=== PATIENT | male | born 1995 | race Caucasian/White ===

== ENCOUNTER 2021-10-10 21:42 | Emergency (ER) | payer OTHER ==
[2021-10-10 21:53] VITALS: BP 156/89
[2021-10-10 22:32] LABS: RAPID STREP SCREEN Negative (Negative)
--- NOTE | 2021-10-10 22:51 | ED Physician Documentation ---
PD HPI HEENT - Stated complaint Stated Complaint: SORE THROAT/FLU SYMPTOMS - Chief complaint Chief Complaint: Heent - History obtained from History obtained from: Patient - History of Present Illness Timing - onset: How many days ago (2) Timing - duration: Days Timing - details: Gradual onset Pain level now: 0 Location: Throat Associated symptoms: Fever (Tmax 103), Congestion, Headache, Cough Similar symptoms before: Has not had sx before Recently seen: Not recently seen - Additional information Additional information: c/o 2 days of cough, productive with occasional blood-tinge mucous, fever to Tmax 103, sore throat, generalized myalgias, generalized headache. He is COVID vaccinated without booster. Takes no medications and has no medication allergies. Review of Systems Constitutional: reports: Fever, Chills, Myalgias, Fatigue, Sweats Eyes: reports: Reviewed and negative Throat: reports: Sore throat Cardiac: reports: Reviewed and negative Respiratory: reports: Cough, Hemoptysis (small amount blood-tinged mucous). denies: Dyspnea GI: reports: Reviewed and negative : denies: Dysuria PD PAST MEDICAL HISTORY - Past Medical History Past Medical History: No - Past Surgical History Past Surgical History: No - Present Medications Home Medications: Ambulatory Orders Medication Instructions Recorded Confirmed Oseltamivir [Tamiflu] 75 mg PO BID #9 cap 10/11/21 - Allergies Allergies/Adverse Reactions: Allergies Allergy/AdvReac Type Severity Reaction Status Date / Time No Known Drug Allergies Allergy Verified 10/10/21 21:53 PD ED PE NORMAL - Vitals Vital signs reviewed: Yes - General General: Alert and oriented X 3, No acute distress, Well developed/nourished - HEENT HEENT: Moist mucous membranes - Neck Neck: Supple, no meningeal sign - Cardiac Cardiac: RRR, No murmur, No gallop, No rub - Respiratory Respiratory: No respiratory distress, Clear bilaterally (except for trace right mid-field rhonchi) - Abdomen Abdomen: Normal bowel sounds, Soft, Non tender, Non distended Results - Vitals Vitals: Oxygen O2 Source Room air - Labs Labs: Microbiology 10/10/21 22:20 Group A Strep Throat Culture - Preliminary Throat CULTURE IN PROGRESS. RESULTS TO FOLLOW. Laboratory Tests 10/10/21 10/11/21 22:20 00:11 Nasal Adenovirus (PCR) NOT DETECTED Nasal B. parapertussis DNA (PCR) NOT DETECTED Nasal Coronavir 229E PCR NOT DETECTED Nasal Coronavir HKU1 PCR NOT DETECTED Nasal Coronavir NL63 PCR NOT DETECTED Nasal Coronavir OC43 PCR NOT DETECTED Nasal Enterovir/Rhinovir PCR NOT DETECTED Nasal Influenza A H3 PCR DETECTED A Nasal Influenza B PCR NOT DETECTED Nasal Influenza A PCR NOT DETECTED Nasal Parainfluen 1 PCR NOT DETECTED Nasal Parainfluen 2 PCR NOT DETECTED Nasal Parainfluen 3 PCR NOT DETECTED Nasal Parainfluen 4 PCR NOT DETECTED Nasal RSV (PCR) NOT DETECTED Nasal B.pertussis DNA PCR NOT DETECTED Nasal C.pneumoniae (PCR) NOT DETECTED [place] Human Metapneumo PCR NOT DETECTED Nasal M.pneumoniae (PCR) NOT DETECTED Nasal SARS-CoV-2 (PCR) NOT DETECTED Group A Strep Rapid Negative - Rads (name of study) chest xray Radiology: Prelim report reviewed, See rad report PD MEDICAL DECISION MAKING - ED course Complexity details: reviewed results, re-evaluated patient, considered differential, d/w patient ED course: possible early infiltrate right middle lung on xray. However, his PCR viral panel reveals positive result for influenza A, so this is likely a viral pneumonia from the same organism. We discussed options for treatment and he would like to initiate treatment for Tamiflu, given first dose in ED and rest of rx electronically transmitted to his pharmacy of choice. Return precautions discussed. Departure - Departure Disposition: 01 Home, Self Care Clinical Impression: Influenza A Condition: Good Instructions: ED Flu, Medication: Tamiflu (Oseltamivir) Follow-Up: CHIKIS Brownlee [Provider Group] (Follow up Thursday if not improved) Prescriptions: Oseltamivir [Tamiflu] 75 mg PO BID #9 cap Comments: A prescription for oseltamivir (anti-viral medication) has been electronically submitted to [facility] pharmacy in [place]. Forms: Activity restrictions Discharge Date/Time: 10/11/21 01:30
--- NOTE | 2021-10-10 23:24 | XRAY Report ---
PROCEDURE: Chest 2 View X-Ray INDICATIONS: cough, right-sided rhonchi TECHNIQUE: 2 view(s) of the chest. COMPARISON: None. FINDINGS: Surgical changes and devices: None. Lungs and pleura: There are a few patchy indistinct left perihilar opacities. No pleural effusions o r pneumothorax. Mediastinum: Mediastinal contours are normal. Heart size is normal. Bones and chest wall: No suspicious bony abnormalities. Soft tissues appear unremarkable. IMPRESSION: 1. Right perihilar opacities suggestive of pneumonia given clinical history. Reviewed by: Samuel Miner MD on 10/10/2021 11:26 PM PDT Approved by: Samuel Miner MD on 10/10/2021 11:26 PM PDT Station ID: [id number]
[2021-10-11 01:07] LABS: B. PARAPERTUSSIS- RESP PCR PAN NOT DETECTED; B. PERTUSSIS- RESP PCR PANEL NOT DETECTED; C. PNEUMONIAE- RESP PCR PANEL NOT DETECTED; CORONAVIRUS 229E-RESP PCR NOT DETECTED; CORONAVIRUS HKU1-RESP PCR NOT DETECTED; CORONAVIRUS NL63-RESP PCR NOT DETECTED; CORONAVIRUS OC43-RESP PCR NOT DETECTED; HUMAN METAPNEUMOVIRUS NOT DETECTED; INFLUENZA A H3- RESP PCR PANEL DETECTED; INFLUENZA A- RESP PCR PANEL NOT DETECTED; INFLUENZA B - RESP PCR PANEL NOT DETECTED; M. PNEUMONIAE- RESP PCR PANEL NOT DETECTED; PARAINFLUENZA VIRUS 1 NOT DETECTED; PARAINFLUENZA VIRUS 2 NOT DETECTED; PARAINFLUENZA VIRUS 3 NOT DETECTED; PARAINFLUENZA VIRUS 4 NOT DETECTED; RHINOVIRUS/ENTEROVIRUS NOT DETECTED; RSV- RESP PCR PANEL NOT DETECTED; SARS-CoV-2 -RESP PCR PANEL NOT DETECTED
[2021-10-11] MEDS ORDERED: OSELTAMIVIR 75 MG CAPSULE PO STA (01:18)
== END 2021-10-11 01:30 | disposition home or self-care (01) ==
LOC: ED 21:42
DX: J10.1 Influenza due to other identified influenza virus with other respiratory manifestations (principal); Z20.822 Contact with and (suspected) exposure to COVID-19
CPT/HCPCS: 87070; 87430; 87633; 99282; 99284